=== PATIENT | male | born 1950 | race Caucasian/White ===

== ENCOUNTER 2022-10-18 09:46 | Emergency (ER) | payer MEDICARE, OTHER, SELFPAY ==
--- NOTE | ~2022-10-18 | XR_ITS ---
EXAMINATION: XR femur RT min 2V DATE: 10/18/2022 10:37 INDICATION: Right hip pain. Injury. TECHNIQUE: 2 views of right femur on 5 radiographs were obtained. COMPARISON: Right knee radiographs 01/26/2008 FINDINGS: There is a total right knee arthroplasty with patellar resurfacing in near-anatomic alignme nt. No periprosthetic lucency to suggest loosening or infection. No fracture. There is a chronic 5.0 cm sclerotic lesion in distal femoral metadiaphysis and pattern of chondroid matrix, likely an enchon droma or osteonecrosis. There is moderate right hip osteoarthritis. IMPRESSION: 1. Total right knee arthroplasty in near-anatomic alignment. 2. Moderate right hip osteoarthritis. Reviewed, dictated and finalized at location A. ET NOTCHER
--- NOTE | ~2022-10-18 | XR_ITS ---
Right Hand Technique: PA, oblique, and lateral views were obtained. Clinical History: Pain Findings: No acute fracture or dislocation is seen. Osseous alignment is anatomic. Scattered minimal degenerative changes are noted in the interphalangeal joints. Soft tissues are unremarkable. Impression: No fracture or dislocation. Scattered minimal degenerative changes in the interphalangeal joints. Reviewed, dictated and finalized at [facility]. CURER Impression: No fracture or dislocation. Scattered minimal degenerative changes in the inter phalangeal joints.
--- NOTE | ~2022-10-18 | XR_ITS ---
EXAMINATION: XR shoulder RT min 2V DATE: 10/18/2022 10:34 INDICATION: Right shoulder injury. TECHNIQUE: 4 views of right shoulder were obtained. COMPARISON: None. FINDINGS: There is superior subluxation of humeral head with narrowing of the subacromial space, cons istent with rotator cuff tear. No fracture. There is mild osteoarthritis of glenohumeral joint and mo derate osteoarthritis of acromioclavicular joint. IMPRESSION: 1. Polyarticular osteoarthritis. 2. Right rotator cuff tear. Reviewed, dictated and finalized at location A. MECHANIC
--- NOTE | ~2022-10-18 | XR_ITS ---
EXAMINATION: XR elbow RT min 3V DATE: 10/18/2022 10:36 INDICATION: Right elbow injury and pain. TECHNIQUE: 4 views of right elbow were obtained. COMPARISON: None. FINDINGS: Bone alignment is normal. No fracture. There is mild elbow joint osteoarthritis. No elbow j oint effusion. IMPRESSION: 1. Mild elbow joint osteoarthritis. Reviewed, dictated and finalized at location A. R TECHNICIAN
--- NOTE | 2022-10-18 09:48 | ED.UPPEXIN ---
HPI - Extremity Injury (Upper) General Chief Complaint: Fall Stated Complaint: right side arm/shoulder injury Time Seen by Provider: 10/18/22 09:48 Source: patient Mode of arrival: ambulatory Limitations: no limitations History of Present Illness HPI narrative: Yves is a 71-year-old male patient presenting to the clinic today with complaints of right shoulder, right elbow, right hand (thumb), and right upper leg injury. He reports he fell yesterday while at work around 5:00 p.m. states it was a ground level fall and he landed on his right side. He does have a cut to the right temporal lobe. He denies any loss of consciousness, headache, or neck pain. Tetanus is not up-to-date. Related Data Home Medications Medication Instructions Recorded Confirmed ascorbic acid (vitamin C) 1,000 mg 1 g PO DAILY 07/24/20 10/18/22 tablet aspirin 81 mg tablet,delayed 81 mg PO DAILY 07/24/20 10/18/22 release multivit with min-folic 1 tablet PO DAILY 07/24/20 10/18/22 acid-lutein 400 mcg-250 mcg chewable tablet (Centrum Silver) Allergies Allergy/AdvReac Type Severity Reaction Status Date / Time Penicillins Allergy Unknown Skin Verified 10/18/22 10:04 Reaction Review of Systems Review of Systems: Pertinent positives per HPI. Patient denies any fever, chills, rash, headache, visual changes, dizziness, cough, runny nose, sore throat, shortness of breath, chest pain, palpitations, nausea, vomiting, diarrhea, constipation, abdominal pain, or any urinary issues. PMFSH Family History Family History Father Hypertension Social History Social History Smoking status: Never smoker Alcohol intake: current Comments At the time of my signature, I reviewed and agree with the nursing past medical, surgical, social, and family history. There is no relevant family history pertinent to the patient complaint. Exam Narrative: General: Well-developed, well nourished, in no apparent distress Head: Normocephalic, 2 cm scratch to the right temporal lobe, bleeding is controlled Cardio: Regular rate and rhythm, s1 and s2 normal, no murmur appreciated. Resp: Clear to auscultation bilaterally, no rhonchi, rales, wheezing or rubs. Musculoskeletal: No deformity, tender to palpation over the right shoulder, right elbow, right thumb, and proximal right lateral femur, unable to lift his arm above his head due to the discomfort, limited range of motion due to the pain, muscle strength strong and equal, peripheral pulse strong, no edema, no cyanosis, normal gait and station Course Course Emergency Course: Portions of this record may have been created with voice recognition software. Level of Care: Express Care Visit Vital Signs Vital signs: Vital Signs Temperature 36.3 C L 10/18/22 09:53 Pulse Rate 101 H 10/18/22 09:53 Respiratory Rate 18 10/18/22 09:53 Blood Pressure 145/71 H 10/18/22 09:53 Pulse Oximetry 98 10/18/22 09:53 Oxygen Delivery Room Air 10/18/22 09:53 Temperature 36.3 C L 10/18/22 09:53 Pulse Rate 101 H 10/18/22 09:53 Respiratory Rate 18 10/18/22 09:53 Blood Pressure 145/71 H 10/18/22 09:53 Pulse Oximetry 98 10/18/22 09:53 Oxygen Delivery Room Air 10/18/22 09:53 Vital signs reviewed MDM - Extremity Injury (Upper) MDM Narrative Medical decision making narrative: At the time of the patient is resting comfortably on the exam table. Wound to the right temporal lobe was cleansed and tetanus shot was given. X-rays of the right shoulder, right elbow, right hand, and right femur were obtained And were negative for any sign of fracture. Probable rotator cuff injury as patient does have some subluxation of the right shoulder. Arm sling was applied. Ortho referral given Differential Diagnosis Differential diagnosis: Likely finger sprain, fracture of hand, disl
[2022-10-18 09:53] VITALS: BP 145/71; PULSE 101; RESP 18; TEMP 36.3; O2SAT 98
[2022-10-18] MEDS: TETANUS,DIPHTHERIA,AC PERTUSSIS ADULT (0.5 ML) BOOSTRIX IM (10:46)
== END 2022-10-18 11:06 | disposition home or self-care (01) ==
PROVIDERS: Emergency Provider Nurse Practitioner Family; PCP Family Medicine
DX: S46.001A Unspecified injury of muscle(s) and tendon(s) of the rotator cuff of right shoulder, initial encounter (principal); S49.91XA Unspecified injury of right shoulder and upper arm, initial encounter; M25.521 Pain in right elbow; M79.644 Pain in right finger(s); M25.551 Pain in right hip; S01.91XA Laceration without foreign body of unspecified part of head, initial encounter; W18.30XA Fall on same level, unspecified, initial encounter; Y99.0 Civilian activity done for income or pay; Z79.82 Long term (current) use of aspirin; Z23 Encounter for immunization
CPT/HCPCS: 73030; 73080; 73130; 73552; 90471; 90715; 99214; A4565; G0463

== ENCOUNTER 2023-03-26 17:03 | Emergency (ER) | payer MEDICARE, OTHER, SELFPAY ==
--- NOTE | 2023-03-26 19:34 | PC.NURSE ---
03/26/231933 SEE DOWNTIME DOCUMENTATION. JENIFER ORNELAS RN
== END 2023-03-26 18:31 | disposition home or self-care (01) ==
PROVIDERS: Emergency Provider Nurse Practitioner Family; PCP Family Medicine
DX: L03.031 Cellulitis of right toe (principal)
CPT/HCPCS: 99213; G0463

== ENCOUNTER → 2023-04-17 09:16 | Outpatient (CLI) | payer MEDICARE, OTHER, SELFPAY ==
--- NOTE | ~2023-04-17 | XR_ITS ---
Right foot Technique: AP, oblique, and lateral views were obtained. Clinical History: Nonhealing ulcer Findings: No acute fracture or dislocation is seen. Osseous alignment is anatomic. Moderate degenerat cherry change present about the tarsometatarsal joints.. Soft tissues are unremarkable. Impression: No radiographic evidence for osteitis. Moderate degenerative change throughout the tarsometatarsal joints. Reviewed, dictated and finalized at location . Impression: No radiographic evidence for osteitis. Moderate degenerative change throughout the tarsometatarsal joints.
== END ==
PROVIDERS: PCP Family Medicine; Visit Provider Physician Assistant
DX: M79.674 Pain in right toe(s) (principal)
CPT/HCPCS: 73630

== ENCOUNTER 2023-09-05 11:09 | Outpatient (CLI) | payer MEDICARE, OTHER, SELFPAY ==
--- NOTE | ~2023-09-05 | XR_ITS ---
XR wrist LT w scaphoid DATE: 09/05/2023 11:44 INDICATION: Chronic left wrist pain TECHNIQUE: 4 views COMPARISON: None FINDINGS: There is chondrocalcinosis of the triangular cartilage. There is spurring at the radial ulnar joint. Osteoarthritic changes are noted at the metacarpophalang eal joints, including first interphalangeal joint and particularly at the first carpometacarpal joint . There is a benign-appearing up to 8.5 x 18.3 mm corticated lucent lesion of the distal ulna. No recent fracture or dislocation, periosteal reaction or bone destruction. IMPRESSION: Chondrocalcinosis Polyarticular osteoarthritis Reviewed, dictated and finalized at location A. CLEANING MACHINE OPERATOR
== END 2023-09-05 11:10 | disposition home or self-care (01) ==
PROVIDERS: PCP Family Medicine; Visit Provider Physician Assistant
DX: M19.032 Primary osteoarthritis, left wrist (principal)
CPT/HCPCS: 73110

== ENCOUNTER 2025-07-12 17:35 | Emergency (ER) | payer MEDICARE, OTHER, SELFPAY ==
--- NOTE | ~2025-07-12 | XR_ITS ---
Examination: XR knee RT 3V Clinical History: pain and swelling RT. Lat. knee x 2 days Comparison: Right femur 10/18/2022 Technique: 3 views of knee Findings/impression: 1. Examination ordered as right knee but images labeled as left. I believe images are in fact the right knee given comparison to prior femur radiographs. Can confirm with technologist. 2. Large suprapatellar joint effusion. And soft tissue swelling medially. 3. Knee arthroplasty intact without periprosthetic fracture or lucency. 4. 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 Reviewed, dictated and finalized at location R. ADDENDUM: 07/12/25 190 Examination has been addended by technologist. Exams are, as suspected, of the right knee.
--- OUTSIDE RECORDS SUMMARY | 2025-07-12 17:41 | XMS_ITS | Clinical Summary ---
Author Organization [facility] Address [address] [place] [address] Care Team Providers Care Assessment Nurse Practitioner Name Role Phone Joleen Cohen MD Primary Care Provider + Allergies Active Allergy Reactions Criticality Noted Date Comments Penicillins Other (See comments) Reaction: Unknown, , Medications omeprazole (PriLOSEC) 40 mg capsule take 1 capsule by oral route every day before a meal 0 0 5 Active metoprolol (LOPRESSOR) 50 mg tablet take 1 tablet by oral route 2 times every day with meals 0 0 5 Active naproxen (NAPROSYN) 500 mg tablet take 1 tablet by oral route every day with food 30 2 5 Active naproxen (NAPROSYN) 500 mg tablet take 1 tablet by oral route every day with food 90 3 6 Active celecoxib (CeleBREX) 200 mg capsule take 1 capsule by oral route 2 times every day as needed 84 0 7 Active oxyCODONE-aceta minophen (PERCOCET) 5-325 mg per tablet take 1-2 tablets by oral route every 4-6 hours as needed for pain 50 0 7 Active ondansetron (ZOFRAN) 4 mg tablet take 2 tablet by oral route 2 times every day 20 0 7 Active oxyCODONE ER (OxyCONTIN) 20 mg 12 hr abuse-deterrent tablet take 1 tablet by oral route every 12 hours 14 0 7 Active aspirin (ECOTRIN) 325 mg EC tablet take 1 tablet by oral route every 12 hours for 6 weeks 84 0 7 Active ascorbic acid, vitamin C, (VITAMIN C) 500 mg capsule, extended release CR capsule take 1 tab by mouth once daily 30 0 7 Active ferrous sulfate 325 mg (65 mg of elemental iron) tablet 1 tab by mouth once daily for 6 weeks 42 0 7 Active senna-docusate (EVELYN-COLACE) 8.6-50 mg take 2 tablet by oral route every day as needed for constipation 20 0 7 Active clindamycin (CLEOCIN) 150 mg capsule 7 Active lisinopril-hydr oCHLOROthiazide (PRINZIDE,ZESTO RETIC) 20-12.5 mg per tabletIndicatio ns:hypertension 7 Active metoprolol XL (TOPROL-XL) 50 mg 24 hr tablet 7 Active morphine ER (MS CONTIN) 15 mg 12 hr tablet 7 Active clindamycin (CLEOCIN) 300 mg capsule 7 Active GAVILYTE-C 240-22.72-6.72 -5.84 gram solution as directed. [address] (PROTONIX) 40 mg EC tablet 1 Active Active Problems Problem Noted Date Diagnosed Date Pain due to total right knee replacement 021 History of arthroplasty of left knee 07/09/2018 Follow-up examination following surgery 07/09/20 18 Pes planus 07/08/2018 Aftercare following left knee joint replacement surgery 03/27/2017 Encounters Date Type Department Care Team Description 05/25/2025 10:25 AM CDT - 05/25/2025 11:59 PM CDT Hospital Encounter [address] [id number] Left upper quadrant pain Discharge Disposition: Discharge to home or self care 05/24/2025 1:03 PM CDT - 05/24/2025 11:59 PM CDT Hospital Encounter [address] [address] Other specified soft tissue disorders Discharge Disposition: Discharge to home or self care from Last 3 Months Surgical History Surgery Date Site/Laterality Comments OTHER SURGICAL HISTORY backpain KNEE ARTHROPLASTY Knee replacement COLECTOMY Colectomy JOINT REPLACEMENT Medical History Medical History Date Comments Hypertension Family History Medical History Relation Name Comments Hypertension Other Hypertension; Relation Name Status Comments Other Social History Tobacco Use Types Packs/Day Years Used Date Smoking Tobacco: Never Smokeless Tobacco: Never Alcohol Use Standard Drinks/Week Comments Yes 0 (1 standard drink = 0.6 oz pur e alcohol) Sex and Gender Information Value Date Recorded Sex Assigned at Not on file 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 Gender Identity Not on file Sexual Orientation Not on file Obstetrics History Last Filed Vital Signs Vital Sign Reading Time Taken Comments Blood Pressure 144/80 02/12/2022 8:12 AM CDT Pulse 71 02/12/2022 8:12 AM CDT Temperature - - Respiratory Rate - - Oxygen Saturation - - Inhaled Oxygen Concentration - - Weight 108.4 kg (239 lb) 02/12/2022 8:12 AM CDT Height 182.9 cm (6') 02/12/2022 8:12 AM CDT Body Mass Index 32.41 02/12/2022 8:12 AM CDT Plan of Treatment Health Maintenance Due Date Last Done Comments Colon Cancer Screening-Colonoscopy 1950 Depression Screening 1950 Fall Risk Assessment 1950 Hepatitis C Screening 1950 DTaP/Tdap/Td Vaccine (1 - Tdap) 1961 Hepatitis B Screening 1968 Zoster Vaccine (1 of 2) 2000 Well Visit 65+ 2015 Pneumococcal vaccine 65+ (2 of 2 - PCV) 07/30/2020 07/30/2019 Covid-19 Vaccine ( - 2024- season) 2025 08/16/2021, 12/06/2020, 11/10/2020 Influenza Vaccine (#1) 2025 , 07/24/2020, 07/30/2019 Abdominal Aortic Aneurysm (A AA) Screen Completed 05/25/2025 Procedures Procedure Name Priority Date/Time Associated Diagnosis Comments CT ABDOMEN PELVIS WO CONTRAST Schedule Routine, Read Routine (OP Routine) 05/25/2025 10:48 AM CDT Left upper quadrant pain US VEIN DUPLEX LOWER EXTREMITY RIGHT LIMITED Schedule Routine, Read Routine (OP Routine) 05/24/2025 2:35 PM CDT Other specified soft tissue disorders from Last 3 Months Results * CT Abdomen Pelvis WO Contrast (05/25/2025 10:48 AM CDT) Anatomical Region Laterality Modality Body N/A Computed Tomogra phy 05/25/2025 10:0 3 PM CDT Narrative 05/25/2025 10:12 PM CDT EXAM DESCRIPTION: CT ABDOMEN PELVIS WO CONTRAST REASON FOR STUDY: LUQP Pt had severe LUQ pain Juwan night. Hx of 1 foot of colon removed. TECHNIQUE: CT scan of the abdomen and pelvis performed without intravenous and without oral contrast using helical scanning technique. Reconstructed coronal and sagittal MPR images reviewed. All images stored on PACS. Automated exposure control was used as a dose optimization technique for this examination. COMPARISON: None FINDINGS: The sensitivity for detection of visceral lesions is diminished without the use of intravenous contrast. LOWER CHEST: Small left-sided pleural effusion with bibasilar subsegmental atelectasis. There are some ground-glass opacities in the left lower lobe for which atypical pneumonia can not be excluded. There is a small hiatal hernia. LIVER: There is hepatic steatosis. No hepatic lesions identified. GALLBLADDER: Decompressed. No gallstones appreciated BILE DUCTS: No intrahepatic or extrahepatic ductal dilatation. SPLEEN: There is a thin line of calcification along the lateral capsular region which is nonspecific and could be sequela prior hemorrhage or infection. PANCREAS: No identified cystic or solid masses. No significant calcifications. No adjacent inflammation or peripancreatic fluid collections. Pancreatic duct not dilated. ADRENALS: Normal. KIDNEYS/URINARY TRACT: Right kidney appears normal. Left kidney contains a 10.9 cm cysts with some peripheral calcifications. There is an adjacent smaller 5.3 cm cyst with some calcifications. There is no hydronephrosis or hydroureter. Prostate is massively enlarged, impressing upon the posterior aspect of the urinary bladder. GI: There is a small hiatal hernia. Stomach is decompressed. A duodenal diverticulum is present. No dilated or thick-walled loops of bowel appreciated. There is no sign of appendicitis. A sigmoid colon anastomosis is noted. PERITONEUM: No ascites or free air. RETROPERITONEUM: No mass or adenopathy. REPRODUCTIVE: Prostate is markedly enlarged. VASCULATURE: No abdominal aortic aneurysm. MUSCULOSKELETAL: There are no suspicious osseous lesions. There are multilevel degenerative changes of the lumbar spine including vacuum disc phenomenon at multiple levels. There is grade 1 anterolisthesis of L4 on L5. OTHER: No other abnormality. IMPRESSION: 1. No acute findings in the abdomen or pelvis. 2. Small left-sided pleural effusion with bibasilar subsegmental atelectasis. There are some ground-glass opacities in the left lower lobe for which atypical pneumonia can not be excluded. 3. Hepatic steatosis. 4. Massively enlarged prostate. 5. Left renal cysts with some peripheral calcifications. 6. Small hiatal hernia. THIS IS AN ELECTRONICALLY VERIFIED FINAL REPORT 05/25/2025 10:12 PM - Electronically signed by Russel Schmitt M.D. AM: AM Report ID: [id number] Reading Location: [id number] Procedure Note Russel Schmitt MD - 05/25/2025 EXAM DESCRIPTION: CT ABDOMEN PELVIS WO CONTRAST REASON FOR STUDY: LUQP Pt had severe LUQ pain Juwan night. Hx of 1 foot of colon removed. TECHNIQUE: CT scan of the abdomen and pelvis performed without intravenousand without oral contrast using helical scanning technique. Reconstructed coronal and sagittal MPR images reviewed. All images stored on PACS.Automated exposure control was used as a dose optimization technique for this examination. COMPARISON: None FINDINGS: The sensitivity for detection of visceral lesions is diminished withoutthe use of intravenous contrast. LOWER CHEST: Small left-sided pleural effusion with bibasilarsubsegmental atelectasis. There are some ground-glass opacities in the left lower lobefor which atypical pneumonia can not be excluded. There is a small hiatalhernia. LIVER: There is hepatic steatosis. No hepatic lesions identified. GALLBLADDER: Decompressed. No gallstones appreciated BILE DUCTS: No intrahepatic or extrahepatic ductal dilatation. SPLEEN: There is a thin line of calcification along the lateral capsular region which is nonspecific and could be sequela prior hemorrhage or infection. PANCREAS: No identified cystic or solid masses. No significant calcifications. No adjacent inflammation or peripancreatic fluidcollections. Pancreatic duct not dilated. ADRENALS: Normal. KIDNEYS/URINARY TRACT: Right kidney appears normal. Left kidneycontains a 10.9 cm cysts with some peripheral calcifications. There is an adjacent smaller 5.3 cm cyst with some calcifications. There is no hydronephrosisor hydroureter. Prostate is massively enlarged, impressing upon theposterior aspect of the urinary bladder. GI: There is a small hiatal hernia. Stomach is decompressed. Aduodenal diverticulum is present. No dilated or thick-walled loops of bowel appreciated. There is no sign of appendicitis. A sigmoid colonanastomosis is noted. PERITONEUM: No ascites or free air. RETROPERITONEUM: No mass or adenopathy. REPRODUCTIVE: Prostate is markedly enlarged. VASCULATURE: No abdominal aortic aneurysm. MUSCULOSKELETAL: There are no suspicious osseous lesions. There are multilevel degenerative changes of the lumbar spine including vacuum disc phenomenon at multiple levels. There is grade 1 anterolisthesis of L4 onL5. OTHER: No other abnormality. IMPRESSION: 1. No acute findings in the abdomen or pelvis. 2. Small left-sided pleural effusion with bibasilar subsegmentalatelectasis. There are some ground-glass opacities in the left lower lobe for which atypical pneumonia can not be excluded. 3. Hepatic steatosis. 4. Massively enlarged prostate. 5. Left renal cysts with some peripheral calcifications. 6. Small hiatal hernia. THIS IS AN ELECTRONICALLY VERIFIED FINAL REPORT 05/25/2025 10:12 PM - Electronically signed by Russel Schmitt M.D. AM: AM Report ID: [id number] Reading Location: [id number] us Notinfile Unknown IMG CT PROCEDURES Final Result * US Vein Duplex Lower Extremity Right Limited, Unilateral (05/24/2025 2:35 PM CDT) Anatomical Region Laterality Modality Vascular Right Ultrasound 05/25/2025 10:1 2 PM CDT Narrative 05/25/2025 10:14 PM CDT EXAM DESCRIPTION: US VEIN DUPLEX LOWER EXTREMITY RIGHT LIMITED, UNILATERAL REASON FOR STUDY: Other specified soft tissue disorder; right leg swelling TECHNIQUE: Duplex scan using the B-mode, spectral Doppler, and color-flow Doppler of the deep venous system of the right lower extremity was performed. Images stored on PACS. COMPARISON: None FINDINGS: The duplicated superficial femoral vein was not compressible and showed decreased flow, as well as the popliteal, posterior tibial, and peroneal veins. The common femoral, common femoral-saphenous vein confluence, and visualized profunda femoral veins are readily compressible with no intraluminal thrombus on gomez scale images. There is normal color and spectral Doppler signal, including augmentation. Greater saphenous vein appears patent. IMPRESSION: Deep venous thrombosis in the right lower extremity involving the duplicated superficial femoral vein, popliteal, posterior tibial, and peroneal veins. Ordering provider was notified by the emissions testing and repair technician on 05/24 at 2:30 p.m.. THIS IS AN ELECTRONICALLY VERIFIED FINAL REPORT 05/25/2025 10:14 PM - Electronically signed by Russel Schmitt M.D. AM: AM Report ID: [id number] Reading Location: [id number] Procedure Note Russel Schmitt MD - 05/25/2025 EXAM DESCRIPTION: US VEIN DUPLEX LOWER EXTREMITY RIGHT LIMITED,UNILATERAL REASON FOR STUDY: Other specified soft tissue disorder; right legswelling TECHNIQUE: Duplex scan using the B-mode, spectral Doppler, and color-flow Doppler of the deep venous system of the right lower extremity was performed. Images stored on PACS. COMPARISON: None FINDINGS: The duplicated superficial femoral vein was not compressible and showed decreased flow, as well as the popliteal, posterior tibial, and peroneal veins. The common femoral, common femoral-saphenous vein confluence, andvisualized profunda femoral veins are readily compressible with no intraluminalthrombus on gomez scale images. There is normal color and spectral Doppler signal, including augmentation. Greater saphenous vein appears patent. IMPRESSION: Deep venous thrombosis in the right lower extremity involving theduplicated superficial femoral vein, popliteal, posterior tibial, and peronealveins. Ordering provider was notified by the emissions testing and repair technician on 05/24 at2:30 p.m.. THIS IS AN ELECTRONICALLY VERIFIED FINAL REPORT 05/25/2025 10:14 PM - Electronically signed by Russel Schmitt M.D. AM: AM Report ID: [id number] Reading Location: [place] [id number] us Notinfile Unknown IMG US PROCEDURES Final Result from Last 3 Months Insurance MEDICARE [facility] PPO T SENIOR SUPPLEMENT [address] MEDICARE AETNA SENIOR SUPPLEMENT [address] MEDICARE [employer] [facility] [place] [place] [address] Care Teams Assessment Nurse Practitioner Relationship Specialty Start Date End Date Joleen Cohen MD PCP - General Family Medicine 09/08/23
--- OUTSIDE RECORDS SUMMARY | 2025-07-12 17:41 | XMS_ITS | Encounter Summary ---
Author Organization [facility] Address [address] [place] [address] Phone Care Team Providers Care Nib Finisher Name Role Phone Vishnu Zamora MD Primary Care Provider [phone] Joleen Cohen MD Primary Care Provider + Encounter Details Date Type Department Care Team (Late st Contact Info) Description 02/10/2018 Orders Only [facility] ProviderChristine MD [address] [place] [id number] Social History Tobacco Use Types Packs/Day Years Used Date Smoking Tobacco: Never Smokeless Tobacco: Never Alcohol Use Standard Drinks/Week Comments Yes 0 (1 standard drink = 0.6 oz pur e alcohol) Sex and Gender Information Value Date Recorded Sex Assigned at Not on file 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 Historical Provider LAB BLOOD ORDERABLES Tara l Result documented in this encounter Visit Diagnoses Not on filedocumented in this encounter Care Teams Nib Finisher Relationship Specialty Start Date End Date Vishnu Zamora MD [address] [place] [address] PCP - General 03/12/17 09/07/23 Joleen Cohen MD [address] [place] [address] PCP - General Family Medicine 09/08/23 documented as of this encounter
[2025-07-12 17:46] VITALS: BP 123/61; PULSE 85; RESP 20; TEMP 36.6; O2SAT 96
--- NOTE | 2025-07-12 17:52 | ED.LOWEXIN ---
HPI - Extremity Injury (Lower) General Chief Complaint: Extremity Injury, Lower Stated Complaint: Right leg injury Time Seen by Provider: 07/12/25 17:52 Source: patient, RN notes reviewed and old records reviewed Mode of arrival: ambulatory Limitations: no limitations History of Present Illness HPI Narrative: 74-year-old male presents to the [facility] with right lower leg injury. States that on Friday he fell through does injuring his right leg. Did see primary care provider this morning. Patient states he was not having pain to the area when he saw his primary today, pain started after exam an after he went to lunch today. Pain to the lateral anterior leg. Mild swelling noted. Related Data Home Medications ?Medication ?Instructions ?Recorded ?Confirmed ?Last Taken ?Type ascorbic acid (vitamin C) 1,000 mg 1 g PO DAILY 07/24/20 07/12/25 Unknown History tablet aspirin 81 mg tablet,delayed 81 mg PO DAILY 07/24/20 07/12/25 Unknown History release dftwhxopebgu-pbqkfyl-josqm acid 1 tablet PO DAILY 07/24/20 07/12/25 Unknown History 400 mcg-lutein 250 mcg chewable tablet (Centrum Silver) Allergies Allergy/AdvReac Type Severity Reaction Status Date / Time Penicillins Allergy Unknown Skin Verified 07/12/25 18:04 Reaction Review of Systems Review of Systems: All systems reviewed & are unremarkable except as noted in HPI and below Constitutional: Constitutional: Reports no additional constitutional complaints ENT: Reports system reviewed and no additional complaints, except as documented Cardiovascular: Cardiovascular: Reports no additional cardiovascular complaints, Denies chest pain and Denies dyspnea Respiratory: Respiratory: Reports no additional respiratory complaints, Denies chest congestion, Denies cough and Denies dyspnea Musculoskeletal: Musculoskeletal: Reports as per HPI Integumentary/Breasts: Skin/Breast: Reports system reviewed and no additional complaints, except as docu PMFSH Past Medical History Medical History Wrist pain, left Hand pain, left Tendonitis of shoulder, right Right rotator cuff tendonitis Hx of renal calculi Normal nuclear stress test 1.26.16 Hx of herpes zoster Surgical History Surgical History Total knee replacement status Right/2009 Left 2015 History of partial colectomy ( dx: diverticulitis)4..2008 colo-colonic anastomosis present Family History Family History Father Hypertension Social History Social History Smoking status: Never smoker Alcohol intake: current Drinks per week: 7 Substance use: never Substance use type: does not use Do You Feel Safe in your Home?: Yes Lack of Transportation: No Lack of Food: Never True Current Housing: I Have Housing Concerned About Future Housing: No Difficulty Paying Gas/Electric Bills: No Difficulty Paying for Meds: No Currently Unemployed: No Education: High School Diploma/GED Difficulty w/ Childcare or Family Care: No Comments At the time of my signature, I reviewed and agree with the nursing past medical, surgical, social, and family history. There is no relevant family history pertinent to the patient complaint. Exam Const: General: cooperative, healthy appearing, comfortable, no acute distress, well developed, alert and well nourished Nutritional Appearance: well nourished Orientation/consciousness: patient oriented x3 Limitations: no limitations HENMT: Head: normal to inspection Eyes: General: appearance normal, both eyes and all related structures Alignment and Position: alignment normal Neck: Neck: normal visual inspection, full ROM, no lymphadenopathy and no meningeal signs Chest: Chest palpation & inspection: normal inspection of the chest Resp: Effort & Inspection: normal respiratory effort and able to speak in complete sentences Cardio: Rate: regular rate Skin: General skin exam: normal color and no rashes or lesions noted Neuro: General: patient oriented x3, gait normal, moves all extremities and no meningeal signs Cognition (Neuro): normal cognition Speech: normal speech Gait exam (Neuro): Normal gait present Extrem: General: normal to inspection, full ROM, capillary refill normal and normal gait Right lower extremity: knee Details: tenderness, swelling and normal ROM and lower leg Details: tenderness and localized swelling; no erythema Knee images:  1. Tenderness, mild swelling. No erythema, ecchymosis noted Psych: Appearance: grossly normal and well kempt Mental Status: mental status grossly normal Speech and movement: Normal speech and movement present and Clear speech present Affect: normal affect Attitude: cooperative Course Course Level of Care: Express Care Visit Vital Signs Vital signs: Vital Signs Temperature 97.8 F 07/12/25 17:46 Pulse Rate 85 07/12/25 17:46 Respiratory Rate 20 07/12/25 17:46 Blood Pressure 123/61 07/12/25 17:46 Pulse Oximetry 96 07/12/25 17:46 Oxygen Delivery Room Air 07/12/25 17:46 Temperature 97.8 F 07/12/25 17:46 Pulse Rate 85 07/12/25 17:46 Respiratory Rate 20 07/12/25 17:46 Blood Pressure 123/61 07/12/25 17:46 Pulse Oximetry 96 07/12/25 17:46 Oxygen Delivery Room Air 07/12/25 17:46 Reviewed MDM - Extremity Injury (Lower) MDM Narrative Medical decision making narrative: Patient sitting in exam room. Patient is nontoxic, vitals stable. Patient presents with injury 2 days ago to his knee. Anterior bilateral discomfort just below knee joint. Most likely effusion, bruising. X-ray showed no acute findings Patient appropriate for outpatient treatment with Close follow-up Discharge instructions reviewed with patient, as well as provided in writing per nursing staff. The instructions also include specific and strict return/GO TO THE ER as well as f/u information. All questions have been answered, and the patient deny any further questions with discharge and discharge plan. Some parts of this dictation were generated by voice recognition software and may contain typographical and/or grammatical inaccuracies. Differential Diagnosis Differential diagnosis: Likely other (Knee sprain, strain,) Imaging Data Radiologist's impression: ADDENDUMExamination has been addended by technologist. Exams are, as suspected, of the right knee. Addendum Dictated By: Jared Monson MD Addendum Signed By: <Electronically signed by Jared Monson MD in OV> 07/12/251903 Addendum Cosigned By: DD/ TD/TT: / Examination: XR knee RT 3V Clinical History: pain and swelling RT. Lat. knee x 2 days Comparison: Right femur 10/18/2022 Technique: 3 views of knee Findings/impression: 1. Examination ordered as right knee but images labeled as left. I believe images are in fact the right knee given comparison to prior femur radiographs. Can confirm with technologist. 2. Large suprapatellar joint effusion. And soft tissue swelling medially. 3. Knee arthroplasty intact without periprosthetic fracture or lucency. 4. 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 Critical Care Time Critical Care Time Critical Care Time: No Discharge Plan Discharge Clinical Impression: Effusion of knee joint right, Contusion of knee, right Patient Disposition: Home Condition: Stable Instructions: Contusion in Adults (ED), Swollen Knee Joint (ED) Additional Instructions: Your Xray did not show a fracture. Ice should be applied to help reduce swelling. It can be used for 20 to 30 minutes, every 2-3 hours while awake. Do not apply ice directly to your skin. You can take Tylenol 650mg every 8 hours as needed for pain Please schedule a follow-up visit with your personal physician for further evaluation and treatment within 2 weeks especially if symptoms persist. For new or worsening symptoms go directly to the emergency room Patient Language: Kinyarwanda Prescriptions: No Action nitroglycerin 0.4 mg tablet, sublingual See Rx Instructions .ROUTE .COMPLEX Qty: 150 1RF Dose Instruction: PLACE 1 TABLET UNDER TONGUE EVERY 5 MINS, UP TO 3 DOSES NEEDED FOR CHEST PAIN Rx Instructions: PLACE 1 TABLET UNDER TONGUE EVERY 5 MINS, UP TO 3 DOSES NEEDED FOR CHEST PAIN aspirin 81 mg tablet,delayed release (DR/EC) 81 mg PO DAILY Centrum Silver 400-250 mcg tablet,chewable 1 tablet PO DAILY ascorbic acid (vitamin C) 1,000 mg tablet 1 g PO DAILY rivaroxaban 20 mg tablet 20 mg PO DAILY Qty: 30 0RF Rx Instructions: must administer with evening meal lisinopril-hydrochlorothiazide 20-12.5 mg tablet See Rx Instructions .ROUTE .COMPLEX Qty: 90 1RF Dose Instruction: TAKE 1 TABLET BY MOUTH EVERY DAY Rx Instructions: TAKE 1 TABLET BY MOUTH EVERY DAY pantoprazole 40 mg tablet,delayed release (DR/EC) See Rx Instructions .ROUTE .COMPLEX Qty: 180 1RF Dose Instruction: TAKE 1 TABLET BY MOUTH TWICE A DAY Rx Instructions: TAKE 1 TABLET BY MOUTH TWICE A DAY rivaroxaban 20 mg tablet 20 mg PO DAILY Qty: 90 0RF Rx Instructions: must administer with evening meal metoprolol succinate 25 mg tablet extended release 24 hr 25 mg PO DAILY Qty: 90 1RF Follow-up/Referrals: Joleen Cohen MD [Primary Care Provider, Family Practice] - 1 Week Clinical Impression: Effusion of knee joint right Time of Disposition: 18:37
== END 2025-07-12 18:40 | disposition home or self-care (01) ==
PROVIDERS: Emergency Provider Nurse Practitioner; PCP Family Medicine
DX: M25.461 Effusion, right knee (principal); S80.01XA Contusion of right knee, initial encounter; W13.9XXA Fall from, out of or through building, not otherwise specified, initial encounter; Z79.82 Long term (current) use of aspirin; Z96.653 Presence of artificial knee joint, bilateral; Z90.49 Acquired absence of other specified parts of digestive tract
CPT/HCPCS: 73562; 99213; G0463

== ENCOUNTER 2025-09-02 09:22 | Emergency (ER) | payer MEDICARE, OTHER, SELFPAY ==
[2025-09-02] VITALS (11 sets, daily range): BP systolic 118–148; BP diastolic 68–77; PULSE 62–83; RESP 16–19; TEMP 36.3; O2SAT 94–98
--- NOTE | ~2025-09-02 | XR_ITS ---
EXAMINATION: XR chest 2V, 09/02/2025 10:15 OPTICAL BRIGHTENER MAKER HELPER HISTORY: chest pain on blood thinners COMPARISON: No comparisons available. Technique: 2 views obtained. Findings: The lungs are clear, no effusion. No pneumothorax. Heart is normal size. Mediastinal and hilar contours are within normal limits. Bony thorax no acute abnormality. Impression: No acute cardiopulmonary abnormality. Reviewed, dictated and finalized at location P. CAL BRIGHTENER MAKER HELPER Impression: No acute cardiopulmonary abnormality.
--- NOTE | ~2025-09-02 | CT_ITS ---
EXAMINATION: CTA chest PE protocol DATE: 09/02/2025 10:50 INDICATION: Rule out PE TECHNIQUE: Computed tomography angiography (CTA) of the chest was performed with 100 mL Omnipaque-350 intravenous contrast timed to evaluate the pulmonary arteries. Coronal maximum intensity projection 3D-reconstructions were created by the technologist. The dose-length product was 587.90 mGy-cm. COMPARISON: None. FINDINGS: No pulmonary emboli seen. No thoracic aortic aneurysm or dissection. Heart size normal. Coronary artery calcifications noted. Para no significant pericardial effusion or bulky lymphadenopathy. Mild bibasilar fibrotic and/or atelectatic changes but no consolidation effusion or pneumothorax. Small hiatal hernia. Diffuse degenerative changes throughout the bones which otherwise appear intact. Partially visualized large left renal cyst measuring at least 10.5 cm. No acute process seen in the visualized portions of the upper abdomen or extrathoracic soft tissues. IMPRESSION: No pulmonary emboli or gross acute intrathoracic process other than mild atelectatic appearing changes. Reviewed, dictated and finalized at location A. T PRACTICE INTERN
--- OUTSIDE RECORDS SUMMARY | 2025-09-02 09:25 | XMS_ITS | Clinical Summary ---
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 Gender Identity Not on file Sexual Orientation Not on file Last Filed Vital Signs Vital Sign Reading [...] PCV) 07/30/2020 07/30/2019 Covid-19 Vaccine ( - season) 2025 08/16/2021, 12/06/2020, 11/10/2020 Influenza Vaccine (#1) 2025 , 07/24/2020, 07/30/2019 Abdominal Aortic Aneurysm (A AA) Screen Completed 05/25/2025 Procedures Procedure Name Priority Date/Time Associated Diagnosis Comments CT ABDOMEN PELVIS WO CONTRAST Schedule Routine, Read Routine (OP Routine) 05/25/2025 10:48 AM CDT Left upper quadrant pain from Last 3 Months or Most Recently Relevant to Health Maintenance Results * CT Abdomen Pelvis WO Contrast [...] Russel Schmitt M.D. AM: AM Report ID: [id number] Reading Location: [id number] Procedure Note Russel Schmitt MD - 05/25/2025 [...] Russel Schmitt M.D. AM: AM Report ID: [id number] Reading Location: [place] [address] PROCEDURES Final Result from Last 3 Months or Most Recently Relevant to Health Maintenance Insurance [facility] [employer] SENIOR SUPPLEMENT [address] MEDICARE [facility] Address: [address] [address] [place] [address] [employer] SENIOR SUPPLEMENT [employer] MEDIC[employer] Care Teams Service Desk Analyst Relationship Specialty Start Date End Date Joleen Cohen MD PCP - General Family Medicine 09/08/23
--- OUTSIDE RECORDS SUMMARY | 2025-09-02 09:25 | XMS_ITS | Encounter Summary ---
Author Organization [facility] Address [address] [place] [address] Phone Care Team Providers Care Induction Brazer Name Role Phone Vishnu Zamora MD Primary Care Provider [phone] Joleen Cohen MD Primary Care Provider + Encounter Details Date Type Department Care Team (Late st Contact Info) Description 02/10/2018 Orders Only [facility] ProviderChristine MD [address] [place] [id number] Social History Tobacco Use Types Packs/Day Years Used Date Smoking Tobacco: Never Smokeless Tobacco: Never Alcohol Use Standard Drinks/Week Comments Yes 0 (1 standard drink = 0.6 oz pur e alcohol) Sex and Gender Information Value Date Recorded Sex Assigned at Not on file 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 Gender Identity Not on file Sexual Orientation Not on file documented as of this encounter Functional Status * BP Location Answer Date of Assessment Author Left arm 02/10/2018 10:44 AM CDT Macey Hernandez MA * BP Location Answer Date of Assessment Author Left arm 02/10/2018 10:44 AM CDT Macey Hernandez MA documented as of this encounter Plan of Treatment Not on file documented as of this encounter Procedures Procedure Name Priority Date/Time Associated Diagnosis Comments DISCHARGE LABORATORY CUMULATIVE REPORT 02/10/2018 12:00 AM CDT documented in this encounter Results * DISCHARGE LABORATORY CUMULATIVE REPORT (02/10/2018 12:00 AM CDT) Narrative 02/10/2018 12:00 AM CDT Ordered by an unspecified provider. us Historical Provider LAB BLOOD ORDERABLES Tara l Result documented in this encounter Visit Diagnoses Not on filedocumented in this encounter Care Teams Induction Brazer Relationship Specialty Start Date End Date Vishnu Zamora MD [address] [place] [id number] PCP - General 03/12/17 09/07/23 Joleen Cohen MD [address] [place] [address] PCP - General Family Medicine 09/08/23 documented as of this encounter
--- NOTE | 2025-09-02 09:46 | ECG_ITS ---
Test Date: 2025-09-02 09:47:19 Measurements Intervals [place] Rate: 77 P: 60 NV: 133 QRS: 12 QRSD: 144 T: 11 QT: 392 QTc: 445 Interpretive Statements SINUS RHYTHM RIGHT BUNDLE BRANCH BLOCK [120+ ms QRS DURATION, UPRIGHT V1, 40+ ms S IN I/aVL/V4/V5/V6] ABNORMAL ECG No previous ECG available for comparison Electronically Signed On 09-02-2025 11:24:42 FULL STACK SOFTWARE DEVELOPER by Rasta Barclay M.D.
[2025-09-02 09:55] LABS: Hematocrit 42.0 % (42.0-52.0); Hemoglobin 14.1 g/dL (14.0-18.0); Immature Granulocyte Percent A 0.2 % (0-0.5); Lymphocytes Absolute Auto 1.27 K/mm3 (0.9-3.2); Mean Corpuscular HGB Conc 33.6 g/dl (32-36); Mean Corpuscular Hemoglobin 29.5 pg (26-34); Mean Corpuscular Volume 87.9 fl (80-100); Nucleated Red Blood Cells Absolute Auto 0.000 K/mm3 (0.0-0.012); Nucleated Red Blood Cells Perc 0.0 % (0.0-0.2); Platelet Count Result 257 k/mm3 (150-375); Red Blood Count 4.78 M/mm3 (4.6-6.20); White Blood Count 5.5 K/mm3 (4.5-10.0)
--- NOTE | 2025-09-02 09:59 | ED.CHESTPAIN ---
HPI - Chest Pain General Chief Complaint: Chest Pain Stated Complaint: leg, blood thinners, wound Time Seen by Provider: 09/02/25 09:26 History of Present Illness HPI narrative: Patient is a 74-year-old male who presents to the ER after sustaining a wound to his right lower extremity, but on the way and he started experiencing chest pain. He reports he was showering this morning, got of the shower and started drying of his legs. Patient reports his right lower extremity started bleeding. Labs Ordered: CBC, CMP, troponin, lipase, proBNP, PTT, INR, UA Imaging Ordered: Chest x-ray, CTA chest Medications Ordered: Results: Pt's CTA chest indicates No pulmonary emboli seen. No thoracic aortic aneurysm or dissection. Heart size normal. Coronary artery calcifications noted. Para no significant pericardial effusion or bulky lymphadenopathy. Mild bibasilar fibrotic and/or atelectatic changes but no consolidation effusion or pneumothorax. Small hiatal hernia. Diffuse degenerative changes throughout the bones which otherwise appear intact. Partially visualized large left renal cyst measuring at least 10.5 cm. No acute process seen in the visualized portions of the upper abdomen or extrathoracic soft tissues. Diagnosis: Right leg puncture wound, atypical chest pain HEART score: moderate risk HEART Score for Major Cardiac Events from [email or web address] on 09/02/2025 All calculations should be rechecked by clinician prior to use RESULT SUMMARY: 4 points Moderate Score (4-6 points) Risk of MACE of 12-16.6%. INPUTS: History ?> 1 = Moderately suspicious EKG ?> 0 = Normal Age ?> 2 = >=5 Risk factors ?> 1 = 1-2 risk factors Initial troponin ?> 0 = <Normal limit Patient Education/Shared MDM: Results of lab work and imaging shared with patient. His right lower extremity puncture wound has stopped bleeding. He is requesting the site be rewrapped prior to discharge. 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 He will not be discharged home with any new prescriptions. Strict return precautions provided. Patient verbalized understanding and is in agreement with plan. Vital signs stable at time of discharge. All questions answered. Related Data Home Medications ?Medication ?Instructions ?Recorded ?Confirmed ?Last Taken ?Type ascorbic acid (vitamin C) 1,000 mg 1 g PO DAILY 07/24/20 08/19/25 Unknown History tablet aspirin 81 mg tablet,delayed 81 mg PO DAILY 07/24/20 08/19/25 Unknown History release hrdcjvrneniz-tygfxhe-iotaq acid 1 tablet PO DAILY 07/24/20 08/19/25 Unknown History 400 mcg-lutein 250 mcg chewable tablet (Centrum Silver) Allergies Allergy/AdvReac Type Severity Reaction Status Date / Time Penicillins Allergy Unknown Skin Verified 09/02/25 09:23 Reaction PMFSH Past Medical History Medical History Wrist pain, left Hand pain, left Tendonitis of shoulder, right Right rotator cuff tendonitis Hx of renal calculi Normal nuclear stress test 1.26.16 Hx of herpes zoster Surgical History Surgical History Total knee replacement status Right/2009 Left 2015 History of partial colectomy ( dx: diverticulitis)4. colo-colonic anastomosis present Family History Family History Father Hypertension Social History Social History (Updated 08/19/25 @ 14:08 by Trena Cruz CMA) Smoking status: Never smoker Alcohol intake: current Substance use: never Substance use type: does not use Do You Feel Safe in your Home?: Yes Lack of Transportation: No Lack of Food: Never True Current Housing: I Have Housing Concerned About Future Housing: No Difficulty Paying Gas/Electric Bills: No Difficulty Paying for Meds: No Currently Unemployed: No Education: High School Diploma/GED Difficulty w/ Childcare or Family Care: No Course Vital Signs Vital signs: Vital Signs Temperature 36.3 C L 09/02/25 09:26 Pulse Rate 81 09/02/25 09:26 Respiratory Rate 18 09/02/25 09:26 Blood Pressure 148/71 H 09/02/25 09:26 Pulse Oximetry 98 09/02/25 09:26 Oxygen Delivery Room Air 09/02/25 09:26 Temperature 36.3 C L 09/02/25 09:26 Pulse Rate 78 09/02/25 10:32 Respiratory Rate 19 09/02/25 10:32 Blood Pressure 123/77 09/02/25 10:32 Pulse Oximetry 96 09/02/25 10:32 Oxygen Delivery Room Air 09/02/25 09:52 MDM - Chest Pain Lab Data 09/02/25 09:49 09/02/25 09:49 Labs: Lab Results 09/02/25 09/02/25 Range/Units 09:49 11:17 WBC 5.5 (4.5-10.0) K/mm3 RBC 4.78 (4.6-6.20) M/mm3 Hgb 14.1 (14.0-18.0) g/dL Hct 42.0 (42.0-52.0) % MCV 87.9 (80-100) fl MCH 29.5 (26-34) pg MCHC 33.6 (32-36) g/dl RDW 14.0 (11.5-14.5) % Plt Count 257 (150-375) k/mm3 MPV 8.6 (7.4-10.4) fl Immature Gran % (Auto) 0.2 (0-0.5) % Neut % (Auto) 67.0 (45.5-73.1) % Lymph % (Auto) 23.0 (18.3-44.2) % [place] % (Auto) 6.9 (2.6-8.5) % Eos % (Auto) 2.0 (0-4.4) % Baso % (Auto) 0.9 (0.2-1.2) % Lymph # (Auto) 1.27 (0.9-3.2) K/mm3 [place] # (Auto) 0.4 (0.1-0.6) K/mm3 Eos # (Auto) 0.1 (0-0.3) K/mm3 Baso # (Auto) 0.1 (0.0-0.1) K/mm3 Abs Immat Gran (auto) 0.01 (0.00-0.031) K/mm3 Absolute Neuts (auto) 3.7 (1.3-6.7) K/mm3 Absolute Nucleated RBC 0.000 (0.0-0.012) K/mm3 Nucleated RBC % 0.0 (0.0-0.2) % PT 17.2 H (11.1-14.7) Seconds INR 1.4 APTT 38.2 H (22.3-36.8) Seconds Sodium 136 L (137-145) mmol/L Potassium 4.3 (3.4-5.0) mmol/L Chloride 105 (98-107) mmol/L Carbon Dioxide 22 (22-30) mmol/L Anion Gap 9 (4-12) mmol/L BUN 24 H (9-20) mg/dL Creatinine 1.04 (0.7-1.3) mg/dL Estim Creat Clear Calc 75 ml/min Estimated GFR > 60 (59 - ) Glucose 94 (65-110) mg/dL Calcium 9.8 (8.4-10.2) mg/dL Total Bilirubin 0.8 (0.2-1.3) mg/dL AST 40 (17-59) U/L ALT 29 (6-50) U/L Alkaline Phosphatase 72 (38-126) U/L Troponin I < 0.012 (0.000-0.034) ng/mL NT-Pro-B Natriuret Pep 30 (19.9-100) pg/mL Total Protein 8.1 (6.3-8.2) g/dL Albumin 4.6 (3.5-5.1) g/dL Lipase 90 (23-300) U/L Urine Color Pending Urine Appearance Pending Urine pH Pending Ur Specific [place] Pending Urine Protein Pending Urine Glucose (UA) Pending Urine Ketones Pending Ur Blood (Man) Pending Urine Nitrate Pending Urine Bilirubin Pending Urine Urobilinogen Pending Leukocyte Esterase Rfl Pending Discharge Plan Discharge Clinical Impression: Atypical chest pain, Chronic anticoagulation, Abrasion of right calf, Swelling of right lower extremity Patient Disposition: Home Condition: Stable Instructions: Antibiotic Form, Noncardiac Chest Pain (ED), Blood Thinners (ED) Additional Instructions: Please return to the ER with any worsening symptoms. Follow-up with primary care provider and petrol tanker driver as soon as possible for further evaluation. Take all medications as prescribed, including regularly scheduled medications. You may place a new pressure dressing on your leg if your symptoms return. Patient Language: Yoruba Prescriptions: No Action nitroglycerin 0.4 mg tablet, sublingual See Rx Instructions .ROUTE .COMPLEX Qty: 150 1RF Dose Instruction: PLACE 1 TABLET UNDER TONGUE EVERY 5 MINS, UP TO 3 DOSES NEEDED FOR CHEST PAIN Rx Instructions: PLACE 1 TABLET UNDER TONGUE EVERY 5 MINS, UP TO 3 DOSES NEEDED FOR CHEST PAIN lisinopril-hydrochlorothiazide 10-12.5 mg tablet 1 tablet PO DAILY Qty: 30 1RF doxycycline hyclate 100 mg capsule 100 mg PO BID Qty: 20 0RF aspirin 81 mg tablet,delayed release (DR/EC) 81 mg PO DAILY Centrum Silver 400-250 mcg tablet,chewable 1 tablet PO DAILY ascorbic acid (vitamin C) 1,000 mg tablet 1 g PO DAILY rivaroxaban 20 mg tablet 20 mg PO DAILY Qty: 30 0RF Rx Instructions: must administer with evening meal lisinopril-hydrochlorothiazide 20-12.5 mg tablet See Rx Instructions .ROUTE .COMPLEX Qty: 90 1RF Dose Instruction: TAKE 1 TABLET BY MOUTH EVERY DAY Rx Instructions: TAKE 1 TABLET BY MOUTH EVERY DAY pantoprazole 40 mg tablet,delayed release (DR/EC) See Rx Instructions .ROUTE .COMPLEX Qty: 180 1RF Dose Instruction: TAKE 1 TABLET BY MOUTH TWICE A DAY Rx Instructions: TAKE 1 TABLET BY MOUTH TWICE A DAY rivaroxaban 20 mg tablet 20 mg PO DAILY Qty: 90 0RF Rx Instructions: must administer with evening meal metoprolol succinate 25 mg tablet extended release 24 hr 25 mg PO DAILY Qty: 90 1RF Follow-up/Referrals: Joleen Cohen MD [Primary Care Provider, Family Practice] Time of Disposition: 12:36
[2025-09-02 10:16] LABS: Alanine Aminotransferase 29 U/L (6-50); Albumin Level 4.6 g/dL (3.5-5.1); Alkaline Phosphatase 72 U/L (38-126); Anion Gap 9 mmol/L (4-12); Aspartate Amino Transferase 40 U/L (17-59); Bilirubin,Total 0.8 mg/dL (0.2-1.3); Blood Urea Nitrogen 24 mg/dL (9-20); Calcium 9.8 mg/dL (8.4-10.2); Carbon Dioxide 22 mmol/L (22-30); Chloride 105 mmol/L (98-107); Estimated CRCL calculation 75 ml/min; Estimated Glomerular Filt Rate > 60; Glucose 94 mg/dL (65-110); Lipase 90 U/L (23-300); Potassium 4.3 mmol/L (3.4-5.0); Sodium 136 mmol/L (137-145); Total Protein 8.1 g/dL (6.3-8.2)
[2025-09-02 10:17] LABS: INR 1.4; Prothrombin Time 17.2 Seconds (11.1-14.7)
[2025-09-02 10:18] LABS: Partial Thromboplastin Time 38.2 Seconds (22.3-36.8)
[2025-09-02 10:28] LABS: Troponin I < 0.012 ng/mL (0.000-0.034)
--- OUTSIDE RECORDS SUMMARY | 2025-09-02 10:34 | XMS_ITS | Encounter Summary ---
Author Organization [facility] Address [address] [place] [address] Phone Care Team Providers Care Microbiology Lab Assistant Name Role Phone Vishnu Zamora MD Primary Care Provider [phone] Joleen Cohen MD Primary Care Provider + Encounter Details Date Type Department Care Team (Late st Contact Info) Description 02/10/2018 Orders Only [facility] ProviderChristine MD [address] [place] [id number] Social History Tobacco Use Types Packs/Day Years Used Date Smoking Tobacco: Never Smokeless Tobacco: Never Alcohol Use Standard Drinks/Week Comments Yes 0 (1 standard drink = 0.6 oz pur e alcohol) Sex and Gender Information Value Date Recorded Sex Assigned at Not on file 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
--- OUTSIDE RECORDS SUMMARY | 2025-09-02 10:34 | XMS_ITS | Clinical Summary ---
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 AM: AM Report ID: [id number] Reading Location: [id number] Procedure Note Russel Schmitt MD - 05/25/2025 [...] Russel Schmitt M.D. AM: AM Report ID: [id number] Reading Location: [place] [address] PROCEDURES Final Result from Last 3 Months or Most Recently Relevant to Health Maintenance Insurance MEDICARE [facility] AETNA SENIOR SUPPLEMENT [address] MEDICARE [facility] Address: [address] [address] [place] [address] AETNA SENIOR SUPPLEMENT [employer] [place] Care Teams Bank Examiner Relationship Specialty Start Date End Date Joleen Cohen MD PCP - General Family Medicine 09/08/23
[2025-09-02 10:57] LABS: NT Pro B Type Natriuretic Pept 30 pg/mL (19.9-100)
[2025-09-02 11:25] LABS: Add Urine Microscopic? NO; Appearance Urine Clear (Clear); Glucose Urine UA Negative (Negative); Leukocyte Esterase Ur Negative LEU/UL (Negative); Nitrate Urine Negative (Negative); Specific Grav Ur 1.011 (1.001-1.035)
== END 2025-09-02 13:03 | disposition home or self-care (01) ==
PROVIDERS: Emergency Provider Registered Nurse; PCP Family Medicine
DX: R07.89 Other chest pain (principal); S80.811A Abrasion, right lower leg, initial encounter; M79.89 Other specified soft tissue disorders; Z79.01 Long term (current) use of anticoagulants; X58.XXXA Exposure to other specified factors, initial encounter
CPT/HCPCS: 36415; 71046; 71275; 80053; 81003; 83690; 83880; 84484; 85025; 85610; 85730; 93005; 99284; Q9967

== ENCOUNTER 2025-09-14 09:38 | Outpatient (NON) | payer MEDICARE, OTHER, SELFPAY ==
--- NOTE | 2025-09-14 | S_PTH ---
PATIENT: Yves Morocho LOC: ANHLAB #:[id number] AGE/SX: 74/M ROOM: RE09/14/[address]: Maribel Roldan APRN : 1950 BED: DIS: 09/14/2025 SPEC #: [id number] RECD: 09/15/25 09:52 STATUS: CIERRA REQ #: [id number] JOSEPH: 09/14/25 00:[address]: Maribel Roldan DEPT: [facility] Surgical RECD BY: Christina Childs ENTERED: 09/15/25 09:53 SP TYPE: Surgical OTHR DR: Joleen Cohen MD Tissues: A - Skin Procedures: Hematoxylin and Eosin Stain Gross and Microscopic Level 4
--- OUTSIDE RECORDS SUMMARY | 2025-09-15 10:26 | XMS_ITS | Encounter Summary ---
Author Organization [facility] Address [address] [place] [address] Phone Care Team Providers Care Senior Test Engineer Name Role Phone Vishnu Zamora MD Primary Care Provider [phone] Joleen Cohen MD Primary Care Provider + Encounter Details Date Type Department Care Team (Late st Contact Info) Description 02/10/2018 Orders Only [facility] ProviderChristine MD [address] [place] [id number] Social History Tobacco Use Types Packs/Day Years Used Date Smoking Tobacco: Never Smokeless Tobacco: Never Alcohol Use Standard Drinks/Week Comments Yes 0 (1 standard drink = 0.6 oz pur e alcohol) Sex and Gender Information Value Date Recorded Sex Assigned at Not on file Legal Sex Male 12:33 PM GROCERY CARRIER Gender Identity Not on file Sexual Orientation [...] on filedocumented in this encounter Care Teams Senior Test Engineer Relationship Specialty Start Date End Date Vishnu Zamora MD [address] [place] [id number] PCP - General 03/12/17 09/07/23 Joleen Cohen MD [address] [place] [address] PCP - General Family Medicine 09/08/23 documented as of this encounter
--- OUTSIDE RECORDS SUMMARY | 2025-09-15 10:26 | XMS_ITS | Clinical Summary ---
Author Organization [facility] Address [address] [place] [address] Care Team Providers Care Customer Response Representative Name Role Phone Joleen Cohen MD Primary Care Provider + Allergies Active Allergy Reactions Criticality Noted Date Comments Penicillins Other (See comments) Reaction: Unknown, , Medications omeprazole (PriLOSEC) 40 mg capsule take 1 capsule by oral route every day before a meal 0 0 05/26/20 15 Active Additional Information Patient not taking.Reported on 09/06/2025 naproxen (NAPROSYN) 500 mg tablet take 1 tablet by oral route every day with food 30 2 05/26/20 15 Active Additional Information Patient not taking.Reported on 09/06/2025 naproxen (NAPROSYN) 500 mg tablet take 1 tablet by oral route every day with food 90 3 12/15/19 16 Active Additional Information Patient not taking.Reported on 09/06/2025 oxyCODONE-erin taminophen (PERCOCET) 5-325 mg per tablet take 1-2 tablets by oral route every 4-6 hours as needed for pain 50 0 03/13/20 17 Active Additional Information Patient not taking.Reported on 09/06/2025 ondansetron (ZOFRAN) 4 mg tablet take 2 tablet by oral route 2 times every day 20 0 03/13/20 17 Active Additional Information Patient not taking.Reported on 09/06/2025 oxyCODONE ER (OxyCONTIN) 20 mg 12 hr abuse-deterre nt tablet take 1 tablet by oral route every 12 hours 14 0 03/13/20 17 Active Additional Information Patient not taking.Reported on 09/06/2025 senna-docusat e (EVELYN-COLACE) 8.6-50 mg take 2 tablet by oral route every day as needed for constipation 20 0 03/13/20 17 Active Additional Information Patient not taking.Reported on 09/06/2025 clindamycin (CLEOCIN) 150 mg capsule 02/10/20 17 Active morphine ER (MS CONTIN) 15 mg 12 hr tablet 03/13/20 17 Active GAVILYTE-C 240-22.72-6.7 2 -5.84 gram solution as directed. 0 07/27/[address] (PROTONIX) 40 mg EC tablet 07/28/20 21 Active lisinopril-hy droCHLOROthia zide (ZESTORETIC) 10-12.5 mg per tablet Take 1 tablet by mouth daily 08/19/20 25 Active metoprolol XL (TOPROL-XL) 25 mg extended release tablet Take 1 tablet (25 mg total) by mouth daily 07/01/20 25 Active rivaroxaban (XARELTO) 20 mg tablet Take 1 tablet (20 mg total) by mouth 06/16/20 25 Active nitroglycerin (NITROSTAT) 0.4 mg SL tablet by other route 09/05/20 23 Active metoprolol (LOPRESSOR) 50 mg tablet take 1 tablet by oral route 2 times every day with meals 0 0 05/26/20 15 025 Discontinued celecoxib (CeleBREX) 200 mg capsule take 1 capsule by oral route 2 times every day as needed 84 0 03/13/20 17 025 Discontinued(P atient Reported) aspirin (ECOTRIN) 325 mg EC tablet take 1 tablet by oral route every 12 hours for 6 weeks 84 0 03/13/20 17 025 Discontinued(P atient Reported) ascorbic acid, vitamin C, (VITAMIN C) 500 mg capsule, extended release CR capsule take 1 tab by mouth once daily 30 0 03/13/20 17 025 Discontinued(P atient Reported) ferrous sulfate 325 mg (65 mg of elemental iron) tablet 1 tab by mouth once daily for 6 weeks 42 0 03/13/20 17 025 Discontinued(P atient Reported) lisinopril-hy droCHLOROthia zide (PRINZIDE,ZES TORETIC) 20-12.5 mg per tabletIndicat ions:hyperten johnathan 02/04/20 17 025 Discontinued metoprolol XL (TOPROL-XL) 50 mg 24 hr tablet 02/22/20 17 025 Discontinued clindamycin (CLEOCIN) 300 mg capsule 04/28/20 17 025 Discontinued(P atient Reported) Active Problems Problem Noted Date Diagnosed Date Pain due to total right knee replacement History of arthroplasty of left knee 07/09/2018 Follow-up examination following surgery 07/09/20 18 Pes planus 07/08/2018 Aftercare following left knee joint replacement surgery 03/27/2017 Encounters Date Type Department Care Team Description 09/06/2025 10:30 AM ATHLETICS TEACHER Office Visit [facility] Orthopedics and Sports Medicine [address] [place] [phone] Harriett Rowley NP Right knee pain, unspecified chronicity (Primary Dx) 09/06/2025 7:44 AM ATHLETICS TEACHER - 09/06/2025 11:59 PM ATHLETICS TEACHER Hospital Encounter [facility] Orthopedics and Sports Medicine [address] [place] [phone] Discharge Disposition: Discharge to home or self care 09/06/2025 7:44 AM ATHLETICS TEACHER - 09/06/2025 11:59 PM ATHLETICS TEACHER Hospital Encounter [facility] Orthopedics and Sports Medicine [address] [place] [phone] Discharge Disposition: Discharge to home or self care from Last 3 Months Surgical History Surgery Date Site/Laterality Comments OTHER SURGICAL HISTORY backpain KNEE ARTHROPLASTY Knee replacement COLECTOMY Colectomy JOINT REPLACEMENT Medical History Medical History Date Comments Hypertension Clotting disorder Family History Medical History Relation Name Comments Hypertension Other Hypertension; Relation Name Status Comments Other Social History Tobacco Use Types Packs/Day Years Used Date Smoking Tobacco: Never Smokeless Tobacco: Never Tobacco Cessation:Counseling Given: Not Answered Alcohol Use Standard Drinks/Week Comments Yes 0 (1 standard drink = 0.6 oz pur e alcohol) AUDIT-C Answer Date Recorded Q1: How often do you have a drink containing alc ohol? Monthly or less 09/06/2025 Q2: How many drinks containi ng alcohol do you have on a typical day when you are drinking? 1 or 2 09/06/2025 Q3: How often do you have si x or more drinks on one occasion? Never 09/06/2025 Sex and Gender Information Value Date Recorded Sex Assigned at Not on file Legal Sex Male 12:33 PM ATHLETICS TEACHER Gender Identity Not on file Sexual Orientation Not on file Last Filed Vital Signs Vital Sign Reading Time Taken Comments Blood Pressure 124/75 09/06/2025 10:23 AM ATHLETICS TEACHER Pulse 94 09/06/2025 10:23 AM ATHLETICS TEACHER Temperature - - Respiratory Rate - - Oxygen Saturation - - Inhaled Oxygen Concentration - - Weight 114.8 kg (253 lb) 09/06/2025 10:23 AM ATHLETICS TEACHER Height 182.9 cm (6') 09/06/2025 10:23 AM ATHLETICS TEACHER Body Mass Index 34.31 09/06/2025 10:23 AM ATHLETICS TEACHER Plan of Treatment Health Maintenance Due Date Last Done Comments Colon Cancer Screening-Colonoscopy 1950 Depression Screening 1950 Fall Risk Assessment 1950 Hepatitis C Screening 1950 Hepatitis B Screening 1968 Well Visit 65+ 2015 Covid-19 Vaccine (4 - 2024-2 6 season) 2025 08/16/2021, 12/06/2020, 11/10/2020 Influenza Vaccine (#1) 2025 , 07/24/2020, 07/30/2019, Additional history exists DTaP/Tdap/Td Vaccine (3 - Td or Tdap) 10/18/2032 10/18/2022, 02/15/2008 Pneumococcal vaccine 65+ Completed 07/30/2019, 11/13 Zoster Vaccine Completed 03/23/2024, 10/23/2023 Procedures Procedure Name Priority Date/Time Associated Diagnosis Comments XR PELVIS 1 OR 2 VIEWS Schedule Routine, Read Routine (OP Routine) 09/06/2025 10:19 AM ATHLETICS TEACHER Right knee pain, unspecified chronicity XR KNEE RIGHT 3 VIEWS Schedule Routine, Read Routine (OP Routine) 09/06/2025 10:19 AM ATHLETICS TEACHER Right knee pain, unspecified chronicity from Last 3 Months Results * XR Pelvis 1 or 2 Views (09/06/2025 10:19 AM ATHLETICS TEACHER) Anatomical Region Laterality Modality Body, Pelvis N/A Digital Radiogra phy Narrative 09/07/2025 11:10 AM ATHLETICS TEACHER An AP pelvis taken today reveals evidence of moderate degenerative changes of the bilateral hips. Harriett Rowley ALLIED HEALTH PROFESSIONAL IMG XR PROCEDURES Final Result * XR Knee Right 3 Views (09/06/2025 10:19 AM ATHLETICS TEACHER) Anatomical Region Laterality Modality Lower Extremities, Knee Right Digital Radiography Narrative 09/06/2025 10:35 AM ATHLETICS TEACHER X-ray of the right knee viewed and interpreted. There is no evidence of fracture, subluxation, or bony abnormality. Total knee arthroplasty present, but placement unchanged from previous imaging. Harriett Rowley ALLIED HEALTH PROFESSIONAL IMG XR PROCEDURES Final Result from Last 3 Months Insurance [facility]IC[facility] AETNA SENIOR SUPPLEMENT [address] MEDICARE AETNA SENIOR SUPPLEMENT [employer] [place] [employer]ICARE [employer] [place] Care Teams Customer Response Representative Relationship Specialty Start Date End Date Joleen Cohen MD PCP - General Family Medicine 09/08/23
== END 2025-09-14 09:39 | disposition home or self-care (01) ==
LOC: ANHLAB 09-15 09:39
PROVIDERS: PCP Family Medicine; Visit Provider Nurse Practitioner Family
DX: L98.9 Disorder of the skin and subcutaneous tissue, unspecified (principal)
CPT/HCPCS: 88305

== ENCOUNTER 2025-09-29 07:32 | Outpatient (CLI) | payer MEDICARE, OTHER, SELFPAY ==
--- NOTE | ~2025-09-29 | NM_ITS ---
EXAMINATION: NM nette stress w perfusion DATE: 09/29/2025 10:45 INDICATION: Precordial chest pain TECHNIQUE: Rest images were obtained following intravenous administration of 12.2 mCi Tc99m tetrofosmin (Myoview). The patient was infused intravenously with Lexiscan (Regadenoson). Then, 31 mCi Tc99m tetrofosmin (Myoview) was administered intravenously, and stress images were obtained. Data was recons tructed into short axis and horizontal and vertical long axis SPECT images. Gated SPECT images were also obtained. COMPARISON: None. FINDINGS: There is no definite reversible or fixed perfusion abnormality to suggest ischemia or infarction. There is normal left ventricular chamber size, wall motion and ejection fraction. Left ventricular ejection fraction measures >70%. IMPRESSION: 1. Normal myocardial perfusion at rest and during stress. 2. Left ventricular ejection fraction measuring >70%. Reviewed, dictated and finalized at location A. ING MACHINE OPERATOR
--- OUTSIDE RECORDS SUMMARY | 2025-09-29 07:37 | XMS_ITS | Clinical Summary ---
Author Organization [facility] Address [address] [place] [address] Care Team Providers Care Expedition Supervisor Name Role Phone Joleen Cohen MD Primary [...] Department Care Team Description 09/06/2025 10:30 AM WARE CLEANER Office Visit [facility] Orthopedics and Sports Medicine [address] [place] [phone] Harriett Rowley NP Right knee pain, unspecified chronicity (Primary Dx) 09/06/2025 7:44 AM WARE CLEANER - 09/06/2025 11:59 PM WARE CLEANER Hospital Encounter [facility] Orthopedics and Sports Medicine [address] [place] [phone] Discharge Disposition: Discharge to home or self care 09/06/2025 7:44 AM WARE CLEANER - 09/06/2025 11:59 PM WARE CLEANER Hospital Encounter [facility] Orthopedics and Sports Medicine [address] [place] [phone] Discharge Disposition: Discharge to home or self [...] on file Legal Sex Male 12:33 PM WARE CLEANER Gender Identity Not on file Sexual Orientation Not on file Last Filed Vital Signs Vital Sign Reading Time Taken Comments Blood Pressure 124/75 09/06/2025 10:23 AM WARE CLEANER Pulse 94 09/06/2025 10:23 AM WARE CLEANER Temperature - - Respiratory Rate - - Oxygen Saturation - - Inhaled Oxygen Concentration - - Weight 114.8 kg (253 lb) 09/06/2025 10:23 AM WARE CLEANER Height 182.9 cm (6') 09/06/2025 10:23 AM WARE CLEANER Body Mass Index 34.31 09/06/2025 10:23 AM WARE CLEANER Plan of Treatment Health Maintenance Due Date [...] Read Routine (OP Routine) 09/06/2025 10:19 AM WARE CLEANER Right knee pain, unspecified chronicity XR KNEE RIGHT 3 VIEWS Schedule Routine, Read Routine (OP Routine) 09/06/2025 10:19 AM WARE CLEANER Right knee pain, unspecified chronicity from Last 3 Months Results * XR Pelvis 1 or 2 Views (09/06/2025 10:19 AM WARE CLEANER) Anatomical Region Laterality Modality Body, Pelvis N/A Digital Radiogra phy Narrative 09/07/2025 11:10 AM WARE CLEANER An AP pelvis taken today reveals evidence of moderate degenerative changes of the bilateral hips. Harriett Rowley BIOLOGICAL SCIENCE TECHNICIAN FISH IMG XR PROCEDURES Final Result * XR Knee Right 3 Views (09/06/2025 10:19 AM WARE CLEANER) Anatomical Region Laterality Modality Lower Extremities, Knee Right Digital Radiography Narrative 09/06/2025 10:35 AM WARE CLEANER X-ray of the right knee viewed and interpreted. There is no evidence of fracture, subluxation, or bony abnormality. Total knee arthroplasty present, but placement unchanged from previous imaging. Harriett Rowley BIOLOGICAL SCIENCE TECHNICIAN FISH IMG XR PROCEDURES Final Result from Last 3 Mon[place] [address] [facility] AETNA SENIOR SUPPLEMENT [address] MEDICARE AETNA SENIOR SUPPLEMENT [employer] [place] [employer]ICARE [employer] [place] Care Teams Expedition Supervisor Relationship Specialty Start Date End Date Joleen Cohen MD PCP - General Family Medicine 09/08/23
--- OUTSIDE RECORDS SUMMARY | 2025-09-29 07:37 | XMS_ITS | Encounter Summary ---
Author Organization [facility] Address [address] [place] [address] Phone Care Team Providers Care Die Cutter Operator Name Role Phone Vishnu Zamora MD Primary Care Provider [phone] Joleen Cohen MD Primary Care Provider + Encounter Details Date Type Department Care Team (Late st Contact Info) Description 02/10/2018 Orders Only [facility] ProviderChristine MD [address] [place] [phone] Social History Tobacco Use Types Packs/Day Years Used Date Smoking Tobacco: Never Smokeless Tobacco: Never Alcohol Use Standard Drinks/Week Comments Yes 0 (1 standard drink = 0.6 oz pur e alcohol) Sex and Gender Information Value Date Recorded Sex Assigned at Not on file Legal Sex Male 12:33 PM RURAL HEALTH CONSULTANT Gender Identity Not on file Sexual Orientation [...] on filedocumented in this encounter Care Teams Die Cutter Operator Relationship Specialty Start Date End Date Vishnu Zamora MD [address] [place] [address] PCP - General 03/12/17 09/07/23 Joleen Cohen MD [address] [place] [address] PCP - General Family Medicine 09/08/23 documented as of this encounter
--- NOTE | 2025-09-29 08:28 | EST_ITS ---
Patient Info Name: Yves Morocho Age: 74 years : 1950 Gender: Male Ht: 75 in Wt: 252 lbs BSA: 2.49 m2 HR: 80 bpm BP: 129 / 69 mmHg Exam Date: 09/29/2025 8:28 AM Patient Status: O Admit Date: 09/29/2025 Exam Type: CA stress nette w NM A pharmacological stress test was performed. Staff Referring Physician: Neri Hunt Attending Provider: Neri Hunt Exercise Technologist: Jessica Hernandez Exercise Physician: Arcenio Flowers DO Summary 1. 1. Negative lexiscan stress test for ischemic ST changes by ECG criteria. 2. 2. Stable hemodynamics throughout the test. 3. 3. Nuclear scan to follow and will be reported separately. Please correlate with it. 4. 4. Patient informed of the above results. Protocol: Lexiscan Stress ECG Details Stage: REST Duration (min): 0 min : 41 sec HR (bpm): 81 SBP (mmHg): 129 DBP (mmHg): 69 Stage: REST Duration (min): 6 min : 22 sec HR (bpm): 91 SBP (mmHg): 129 DBP (mmHg): 69 Stage: STAGE 1 Duration (min): 1 min : 0 sec HR (bpm): 99 SBP (mmHg): 115 DBP (mmHg): 68 Stage: RECOVERY Duration (min): 1 min : 0 sec HR (bpm): 108 SBP (mmHg): 115 DBP (mmHg): 68 Stage: RECOVERY Duration (min): 2 min : 0 sec HR (bpm): 105 SBP (mmHg): 115 DBP (mmHg): 68 Stage: RECOVERY Duration (min): 3 min : 0 sec HR (bpm): 97 SBP (mmHg): 123 DBP (mmHg): 65 Stage: RECOVERY Duration (min): 3 min : 10 sec HR (bpm): 101 SBP (mmHg): 123 DBP (mmHg): 65 Rest HR: 91 bpm Peak HR: 114 bpm Rest Sys BP: 129 mmHg Peak Sys BP: 123 mmHg Max Pred HR: 146 bpm % Max Pred HR: 78 % Target HR: 124 bpm Max RPP: 14,022 bpm*mmHg Termination Reason: Completed protocol Cardiac Symptoms: Shortness of breath Total Time: 1 min : 0 sec Rest Hadley BP: 69 mmHg Peak Hadley BP: 65 mmHg Total Dose: 0.4 mg Resting ECG Sinus rhythm, RBBB. Stress ECG No ST changes. Arrhythmias None. Report Signatures
== END 2025-09-29 07:33 | disposition home or self-care (01) ==
PROVIDERS: PCP Family Medicine; Visit Provider Student in an Organized Health Care Education/Training Program
DX: R07.2 Precordial pain (principal)
CPT/HCPCS: 78452; 93017; A9502; J2785